=== PATIENT | female | born 1930 | race Caucasian/White ===

== ENCOUNTER 2019-04-13 06:58 | Inpatient (IN) ==
[2019-04-07 12:04] LABS: Basophils % 0.7 % (0.0-0.8); Eosinophils # 0.2 10*3/uL (0.0-0.87); Eosinophils % 2.7 % (0.00-10.9); Hematocrit 30.5 VOL% (35.7-47.0); Hemoglobin 9.6 GM/DL (12.0-16.0); Immature Granulocytes % 0.4 %; Immature Granulocytes Absolute 0.02 #; Lymphocytes # 1.4 10*3/uL (1.4-4.0); Lymphocytes % 23.9 % (21.3-54.2); Mean Corpuscular HGB Conc 31.5 GM/DL (32-36); Mean Corpuscular Volume 98.4 FL (87-102); Mean Platelet Volume 9.2 FL (9.6-12.0); Monocytes % 8.5 % (1.7-12.7); Neutrophils % 63.8 % (38.7-73.9); Platelet Count 233 T/CUMM (130-400); Red Cell Distribution Width 12.6 % (9.3-17.3); White Blood Count 5.7 T/CUMM (4-12)
[2019-04-07 12:46] LABS: Albumin 4.1 G/DL (3.4-5.0); Bilirubin,Total 0.4 MG/DL (0.2-1.0); Calcium 9.8 MG/DL (8.5-10.1); Osmolality,Calculated 284.2 MOS/KG (273-304); Total Protein 7.4 G/DL (6.4-8.3)
[~2019-04-13 06:58] MED LIST: ceFAZolin 1,000 MG VIAL ONE; ceFAZolin 1,000 MG in SYRINGE 1 EACH IV ONE
[2019-04-13] MEDS ORDERED: LIDOCAINE 1% 20 ML VIAL ONE (07:47)
[2019-04-13] MEDS ORDERED: VANCOMYCIN 500 MG VIAL ONE (07:47)
[2019-04-13] MEDS ORDERED: HEPARIN 5,000 UNIT/1 ML VIAL ONE (07:47)
[2019-04-13] MEDS ORDERED: THROMBIN TOPICAL (RECOMBINANT) 5,000 UNIT VIAL TOP ONE (07:47)
[2019-04-13] MEDS: SODIUM CHLORIDE 0.9% 250 ML IV SCH ×3 (08:50→15:13)
[2019-04-13] MEDS ORDERED: TISSUE ADHESIVE 1 EACH APPLICATOR TOP ONE (10:49)
[2019-04-13] MEDS ORDERED: HYDROmorphone 2 MG/1 ML VIAL IV PRN (11:04)
[2019-04-13] MEDS ORDERED: ONDANSETRON 4 MG/2 ML VIAL IV PRN (11:04)
[2019-04-13] MEDS ORDERED: NALOXONE 0.4 MG/ML VIAL ONE ×2 (11:09→11:27)
[2019-04-13] MEDS ORDERED: ACETAMINOPHEN 1,000 MG/100 ML VIAL IV ONE (11:20)
[2019-04-13] MEDS ORDERED: ROCURONIUM 100 MG/10 ML VIAL IV ONE (11:27)
[2019-04-13] MEDS ORDERED: SODIUM CHLORIDE 0.9% 250 ML IV ONE (11:27)
[2019-04-13] MEDS ORDERED: PROPOFOL 200 MG/20 ML VIAL IV ONE (11:27)
[2019-04-13] MEDS ORDERED: fentaNYL 100 MCG/2 ML VIAL ONE (11:27)
[2019-04-13] MEDS ORDERED: SEVOFLURANE 1 UNIT/15 MINUTE INH ONE (11:27)
[2019-04-13] MEDS ORDERED: ETOMIDATE 40 MG/20 ML VIAL IV ONE (11:27)
[2019-04-13] MEDS ORDERED: fentaNYL 50 MCG/HR PATCH TRANSDERM SCH (11:30)
[2019-04-13] MEDS: PANTOPRAZOLE 40 MG TABLET PO SCH (15:11)
[2019-04-13] MEDS: DEXTROSE 5% NACL 0.45% 1,000 ML IV SCH (16:52)
[2019-04-13] MEDS: DOCUSATE SODIUM 100 MG CAPSULE PO SCH (20:55)
[2019-04-13] MEDS: METOPROLOL TARTRATE 50 MG TABLET PO SCH (20:55)
[2019-04-14 04:33] LABS: Hematocrit 29.1 VOL% (35.7-47.0)
[2019-04-14 04:48] LABS: Calcium 8.4 MG/DL (8.5-10.1); Osmolality,Calculated 289.5 MOS/KG (273-304)
[2019-04-14] MEDS: MULTIVITAMIN (BEROCCA) TABLET PO SCH (09:28)
[2019-04-14] MEDS: DOCUSATE SODIUM 100 MG CAPSULE PO SCH ×2 (09:29→20:56)
[2019-04-14] MEDS: GABAPENTIN 400 MG CAPSULE PO SCH (09:29)
[2019-04-14] MEDS: PANTOPRAZOLE 40 MG TABLET PO SCH (09:29)
[2019-04-14] MEDS: FUROSEMIDE 40 MG TABLET PO SCH (09:29)
[2019-04-14] MEDS: METOPROLOL TARTRATE 50 MG TABLET PO SCH ×2 (09:30→20:56)
[2019-04-14] MEDS: MULTIVITAMIN (CENTRUM) TABLET PO SCH (09:33)
[2019-04-14] MEDS: DEXTROSE 5% NACL 0.45% 1,000 ML IV SCH (10:27)
[2019-04-14] MEDS ORDERED: fentaNYL 50 MCG/HR PATCH TRANSDERM SCH (14:00)
[2019-04-15] MEDS: MULTIVITAMIN (CENTRUM) TABLET PO SCH (08:21)
[2019-04-15] MEDS: MULTIVITAMIN (BEROCCA) TABLET PO SCH (08:21)
[2019-04-15] MEDS: FUROSEMIDE 40 MG TABLET PO SCH (08:21)
[2019-04-15] MEDS: METOPROLOL TARTRATE 50 MG TABLET PO SCH (08:21)
[2019-04-15] MEDS: DOCUSATE SODIUM 100 MG CAPSULE PO SCH (08:21)
[2019-04-15] MEDS: GABAPENTIN 400 MG CAPSULE PO SCH (08:22)
[2019-04-15] MEDS: PANTOPRAZOLE 40 MG TABLET PO SCH (08:22)
[2019-04-15 12:22] VITALS: BP 148/51
== END 2019-04-15 14:26 | disposition home or self-care (01) | DRG 254 ==
LOC: N.OR 06:58 → N.SDSINP 07:03 → N.4E 11:04 → EDSTATUS 11:45 → N.4E 12:38
PROVIDERS: ADMIT Surgery; ATTEND Surgery

== ENCOUNTER 2020-07-02 07:14 | Inpatient (IN) ==
[2020-06-25 15:51] LABS: Basophils % 0.3 % (0.0-0.8); Eosinophils % 0.7 % (0.00-10.9); Hematocrit 27.5 VOL% (35.7-47.0); Hemoglobin 8.7 GM/DL (12.0-16.0); Immature Granulocytes % 0.2 %; Immature Granulocytes Absolute 0.01 #; Lymphocytes # 1.4 10*3/uL (1.4-4.0); Lymphocytes % 23.5 % (21.3-54.2); Mean Corpuscular HGB Conc 31.6 GM/DL (32-36); Mean Corpuscular Volume 96.2 FL (87-102); Mean Platelet Volume 9.1 FL (9.6-12.0); Monocytes % 7.5 % (1.7-12.7); Neutrophils % 67.8 % (38.7-73.9); Platelet Count 448 T/CUMM (130-400); Red Blood Count 2.86 MC/CUMM (3.8-5.5); Red Cell Distribution Width 13.8 % (9.3-17.3)
[2020-06-25 16:00] LABS: PT Patient Result 10.7 SECS (9.8-11.9)
[2020-06-25 16:13] LABS: Alanine Aminotransferase 14 U/L (13-56); Alkaline Phosphatase 127 U/L (45-117); Aspartate Amino Transferase 9 U/L (0-37); Bilirubin,Total < 0.39 MG/DL (0.2-1.0); Blood Urea Nitrogen 72 MG/DL (7-18); Calcium 10.1 MG/DL (8.5-10.1); Estimated Glom Filtration Rate 17 ML/MIN; Glucose 98 MG/DL (74-106); Osmolality,Calculated 293.8 MOS/KG (273-304); Total Protein 5.8 G/DL (6.4-8.3)
[~2020-07-02 07:14] MED LIST changes: +HEPARIN 5,000 UNIT/1 ML VIAL ONE; +LACTATED RINGERS 1,000 ML IV SCH; +VANCOMYCIN 500 MG VIAL ONE; +VANCOMYCIN INJ 500 MG in SODIUM CHLORIDE 0.9% 100 ML IV ONE; -ceFAZolin 1,000 MG VIAL ONE; -ceFAZolin 1,000 MG in SYRINGE 1 EACH IV ONE
[2020-07-02] MEDS ORDERED: TISSUE ADHESIVE 1 EACH APPLICATOR TOP ONE (09:50)
[2020-07-02] MEDS ORDERED: ONDANSETRON 4 MG/2 ML VIAL IV PRN (10:36)
[2020-07-02] MEDS ORDERED: FUROSEMIDE 40 MG TABLET PO PRN (10:39)
[2020-07-02] MEDS ORDERED: LIDOCAINE 2% 5 ML VIAL ONE (10:58)
[2020-07-02] MEDS ORDERED: SEVOFLURANE 1 UNIT/15 MINUTE INH ONE (10:58)
[2020-07-02] MEDS ORDERED: propofoL 200 MG/20 ML VIAL IV ONE (10:58)
[2020-07-02] MEDS ORDERED: HEPARIN 10,000 UNIT/10 ML VIAL ONE (10:58)
[2020-07-02] MEDS ORDERED: NALOXONE 0.4 MG/ML VIAL ONE (10:59)
[2020-07-02] MEDS ORDERED: fentaNYL 100 MCG/2 ML VIAL ONE ×2 (10:59)
[2020-07-02] MEDS ORDERED: ETOMIDATE 40 MG/20 ML VIAL IV ONE (11:00)
[2020-07-02] MEDS ORDERED: ACETAMINOPHEN 1,000 MG/100 ML VIAL IV ONE (11:00)
[2020-07-02] MEDS ORDERED: DEXAMETHASONE 4 MG/1 ML VIAL ONE (11:00)
[2020-07-02] MEDS ORDERED: GLYCOPYRROLATE 0.4 MG/2 ML VIAL ONE (11:00)
[2020-07-02] MEDS ORDERED: ROCURONIUM 100 MG/10 ML VIAL IV ONE (11:00)
[2020-07-02] MEDS ORDERED: PHENYLEPHRINE 10 MG/1 ML VIAL IV ONE (11:00)
[2020-07-02] MEDS ORDERED: NEOSTIGMINE 10 MG/10 ML VIAL ONE (11:00)
[2020-07-02 11:33] LABS: Hematocrit 20.1 VOL% (35.7-47.0)
[2020-07-02 11:39] LABS: Hemoglobin 6.4 GM/DL (12.0-16.0)
[2020-07-02] MEDS ORDERED: SODIUM CHLORIDE 0.9% 1,000 ML IV PRN (11:47)
[2020-07-02] MEDS ORDERED: INFLUENZA VIRUS VACCINE 0.5 ML SYRINGE IM ONE (12:50)
[2020-07-02] MEDS: GABAPENTIN 400 MG CAPSULE PO SCH (22:33)
[2020-07-02] MEDS: METHENAMINE HIPPURATE 1 GM TABLET PO SCH (22:33)
[2020-07-02] MEDS: ACETAMINOPHEN 325 MG TABLET PO PRN (22:33)
[2020-07-02] MEDS: LACTATED RINGERS 1,000 ML IV SCH (22:45)
[2020-07-03 06:05] LABS: Calcium 9.3 MG/DL (8.5-10.1); Osmolality,Calculated 296.1 MOS/KG (273-304)
[2020-07-03 06:23] LABS: Basophils # 0.1 10*3/uL (0.0-0.2); Basophils % 0.2 % (0.0-0.8); Hematocrit 32.8 VOL% (35.7-47.0); Immature Granulocytes Absolute 0.28 #; Lymphocytes % 3.2 % (21.3-54.2); Mean Corpuscular Volume 96.8 FL (87-102); Monocytes % 2.4 % (1.7-12.7); Neutrophils % 93.2 % (38.7-73.9); Platelet Count 303 T/CUMM (130-400); Red Blood Count 3.39 MC/CUMM (3.8-5.5); Red Cell Distribution Width 14.2 % (9.3-17.3); White Blood Count 29.3 T/CUMM (4-12)
[2020-07-03 06:26] LABS: Hemoglobin 10.5 GM/DL (12.0-16.0)
[2020-07-03 06:49] LABS: Band Neutrophils 4 % (0-10); Hypochromasia 1+; Lymphocytes 4 % (20-55); Nucleated Red Blood Cells 1 (0-5); Platelet Estimate Normal; Segmented Neutrophils 88 % (50-85); Total Cells Counted 100
[2020-07-03] MEDS: ENOXAPARIN 30 MG/0.3 ML SYRINGE SUBCUT SCH (06:53)
[2020-07-03] MEDS: METOPROLOL SUCCINATE XL 50 MG TABLET PO SCH (09:20)
[2020-07-03] MEDS: METHENAMINE HIPPURATE 1 GM TABLET PO SCH ×2 (09:20→20:17)
[2020-07-03] MEDS: GABAPENTIN 400 MG CAPSULE PO SCH ×2 (09:20→20:17)
[2020-07-03] MEDS: ASPIRIN EC 81 MG TABLET PO SCH (09:20)
[2020-07-03] MEDS: PANTOPRAZOLE 40 MG TABLET PO SCH (09:20)
[2020-07-03] MEDS: CALCIUM (CARBONATE)/VITAMIN D 600 MG-400 UNIT TABLET PO SCH (09:20)
[2020-07-03] MEDS: [UNRECOGNIZED DRUG - OTHER] PO SCH (10:30)
[2020-07-03] MEDS: LACTATED RINGERS 1,000 ML IV SCH (18:34)
[2020-07-03] MEDS: ACETAMINOPHEN 325 MG TABLET PO PRN (20:16)
[2020-07-04 05:41] LABS: Basophils % 0.1 % (0.0-0.8); Eosinophils % 0.1 % (0.00-10.9); Hematocrit 27.2 VOL% (35.7-47.0); Hemoglobin 8.8 GM/DL (12.0-16.0); Immature Granulocytes % 0.6 %; Immature Granulocytes Absolute 0.11 #; Lymphocytes % 5.4 % (21.3-54.2); Mean Corpuscular HGB Conc 32.4 GM/DL (32-36); Mean Corpuscular Volume 96.5 FL (87-102); Mean Platelet Volume 10.2 FL (9.6-12.0); Monocytes % 3.9 % (1.7-12.7); Neutrophils % 89.9 % (38.7-73.9); Platelet Count 214 T/CUMM (130-400); Red Blood Count 2.82 MC/CUMM (3.8-5.5); Red Cell Distribution Width 14.2 % (9.3-17.3); White Blood Count 18.7 T/CUMM (4-12)
[2020-07-04] MEDS: ENOXAPARIN 30 MG/0.3 ML SYRINGE SUBCUT SCH (05:52)
[2020-07-04 06:01] LABS: Calcium 9.1 MG/DL (8.5-10.1); Osmolality,Calculated 288.5 MOS/KG (273-304)
[2020-07-04] MEDS: METOPROLOL SUCCINATE XL 50 MG TABLET PO SCH (10:12)
[2020-07-04] MEDS: METHENAMINE HIPPURATE 1 GM TABLET PO SCH ×2 (10:12→20:12)
[2020-07-04] MEDS: PANTOPRAZOLE 40 MG TABLET PO SCH (10:12)
[2020-07-04] MEDS: CALCIUM (CARBONATE)/VITAMIN D 600 MG-400 UNIT TABLET PO SCH (10:12)
[2020-07-04] MEDS: LACTATED RINGERS 1,000 ML IV SCH (10:13)
[2020-07-04] MEDS: GABAPENTIN 400 MG CAPSULE PO SCH ×2 (10:13→20:12)
[2020-07-04] MEDS: ASPIRIN EC 81 MG TABLET PO SCH (10:13)
[2020-07-04] MEDS: [UNRECOGNIZED DRUG - OTHER] PO SCH (10:13)
[2020-07-04] MEDS: SODIUM BICARB INJ 50 MEQ in SODIUM CHLORIDE 0.45% 1,000 ML IV SCH (11:20)
[2020-07-04] MEDS: HYDROmorphone 2 MG/1 ML VIAL IV PRN (11:20)
[2020-07-04] MEDS: ACETAMINOPHEN 325 MG TABLET PO PRN (20:13)
[2020-07-05] MEDS: ACETAMINOPHEN 325 MG TABLET PO PRN (03:35)
[2020-07-05] MEDS: HYDROmorphone 2 MG/1 ML VIAL IV PRN (04:32)
[2020-07-05] MEDS: ENOXAPARIN 30 MG/0.3 ML SYRINGE SUBCUT SCH (05:25)
[2020-07-05 05:58] LABS: Osmolality,Calculated 298.7 MOS/KG (273-304)
[2020-07-05] MEDS ORDERED: amLODIPine 5 MG TABLET PO SCH (09:00)
[2020-07-05] MEDS ORDERED: fentaNYL 50 MCG/HR PATCH TRANSDERM SCH (09:00)
[2020-07-05] MEDS: METHENAMINE HIPPURATE 1 GM TABLET PO SCH (09:03)
[2020-07-05] MEDS: GABAPENTIN 400 MG CAPSULE PO SCH (09:03)
[2020-07-05] MEDS: ASPIRIN EC 81 MG TABLET PO SCH (09:03)
[2020-07-05] MEDS: [UNRECOGNIZED DRUG - OTHER] PO SCH (09:04)
[2020-07-05] MEDS: METOPROLOL SUCCINATE XL 50 MG TABLET PO SCH (09:04)
[2020-07-05] MEDS: CALCIUM (CARBONATE)/VITAMIN D 600 MG-400 UNIT TABLET PO SCH (09:04)
[2020-07-05] MEDS: PANTOPRAZOLE 40 MG TABLET PO SCH (09:04)
[2020-07-05] MEDS: SODIUM BICARB INJ 50 MEQ in SODIUM CHLORIDE 0.45% 1,000 ML IV SCH (09:06)
[2020-07-05 11:12] VITALS: BP 112/54
== END 2020-07-05 12:40 | disposition home health service (06) | DRG 271 ==
LOC: N.OR 07:14 → N.SDSINP 07:16 → N.3E 11:45
PROVIDERS: ADMIT Surgery; ATTEND Surgery

== ENCOUNTER 2020-07-23 16:48 | Inpatient (IN) ==
[2020-07-24] MEDS: PIPERACILLIN/TAZOBACTAM 2,250 MG in SODIUM CHLORIDE 0.9% 100 ML IV SCH ×3 (00:27→22:06)
[2020-07-24] MEDS: CIPROFLOXACIN 500 MG TABLET PO SCH ×3 (00:27→22:06)
[2020-07-24 09:51] LABS: Basophils % 0.4 % (0.0-0.8); Eosinophils # 0.1 10*3/uL (0.0-0.87); Eosinophils % 1.5 % (0.00-10.9); Hematocrit 29.6 VOL% (35.7-47.0); Hemoglobin 9.8 GM/DL (12.0-16.0); Immature Granulocytes % 2.1 %; Immature Granulocytes Absolute 0.16 #; Lymphocytes # 0.9 10*3/uL (1.4-4.0); Lymphocytes % 11.4 % (21.3-54.2); Mean Corpuscular HGB Conc 33.1 GM/DL (32-36); Mean Corpuscular Volume 92.5 FL (87-102); Monocytes % 7.7 % (1.7-12.7); Neutrophils % 76.9 % (38.7-73.9); Platelet Count 390 T/CUMM (130-400); Red Cell Distribution Width 14.6 % (9.3-17.3); White Blood Count 7.5 T/CUMM (4-12)
[2020-07-24 10:13] LABS: Albumin 1.4 G/DL (3.4-5.0); Bilirubin,Total 1.1 MG/DL (0.2-1.0); Calcium 9.2 MG/DL (8.5-10.1); Osmolality,Calculated 287.1 MOS/KG (273-304); Total Protein 4.7 G/DL (6.4-8.3)
[2020-07-24] MEDS ORDERED: ONDANSETRON 4 MG/2 ML VIAL IV PRN (15:35)
[2020-07-24] MEDS ORDERED: ALBUTEROL/IPRATROPIUM 3 ML NEB RESP TX PRN (15:35)
[2020-07-24] MEDS: METOPROLOL SUCCINATE XL 50 MG TABLET PO SCH (17:18)
[2020-07-24] MEDS: LACTATED RINGERS 1,000 ML IV SCH (17:26)
[2020-07-24] MEDS: diphenhydrAMINE CAP 25 MG CAPSULE PO SCH (22:07)
[2020-07-25] MEDS: LACTATED RINGERS 1,000 ML IV SCH ×2 (08:15→18:40)
[2020-07-25] MEDS: PIPERACILLIN/TAZOBACTAM 2,250 MG in SODIUM CHLORIDE 0.9% 100 ML IV SCH ×2 (10:01→21:51)
[2020-07-25] MEDS: METOPROLOL SUCCINATE XL 50 MG TABLET PO SCH (10:01)
[2020-07-25] MEDS: CIPROFLOXACIN 500 MG TABLET PO SCH ×2 (10:01→21:51)
[2020-07-25] MEDS: PANTOPRAZOLE 40 MG TABLET PO SCH (10:01)
[2020-07-25] MEDS: diphenhydrAMINE CAP 25 MG CAPSULE PO SCH (21:51)
[2020-07-25] MEDS: MENTHOL/ZINC OXIDE OINT 71 GM JAR TOP SCH (21:51)
[2020-07-26] MEDS: LACTATED RINGERS 1,000 ML IV SCH ×3 (04:36→23:22)
[2020-07-26] MEDS ORDERED: BUPIVACAINE MPF 0.25% 30 ML VIAL ONE (07:21)
[2020-07-26] MEDS ORDERED: HEPARIN 5,000 UNIT/1 ML VIAL ONE ×2 (07:21→12:32)
[2020-07-26] MEDS ORDERED: LIDOCAINE 1% 20 ML VIAL ONE (07:21)
[2020-07-26] MEDS ORDERED: VANCOMYCIN 500 MG VIAL ONE (07:21)
[2020-07-26] MEDS ORDERED: LIDOCAINE 1%/EPI INJ 20 ML VIAL ONE (07:21)
[2020-07-26] MEDS ORDERED: ALBUMIN 5% 12.5 GM/250 ML VIAL IV ONE (09:05)
[2020-07-26] MEDS ORDERED: CALCIUM CHLORIDE 1,000 MG/10 ML VIAL IV ONE (09:05)
[2020-07-26] MEDS ORDERED: TISSUE ADHESIVE 1 EACH APPLICATOR TOP ONE (11:22)
[2020-07-26] MEDS ORDERED: HEPARIN 10,000 UNIT/10 ML VIAL ONE (11:53)
[2020-07-26] MEDS ORDERED: ROCURONIUM 100 MG/10 ML VIAL IV ONE (11:53)
[2020-07-26] MEDS ORDERED: HEPARIN/NACL 0.9% 2 UNITS/ML 500 ML IV ONE (11:53)
[2020-07-26] MEDS ORDERED: ONDANSETRON 4 MG/2 ML VIAL ONE (11:53)
[2020-07-26] MEDS ORDERED: PHENYLEPHRINE 10 MG/1 ML VIAL IV ONE (11:53)
[2020-07-26] MEDS ORDERED: LACTATED RINGERS 1,000 ML IV ONE (11:53)
[2020-07-26] MEDS ORDERED: propofoL 200 MG/20 ML VIAL IV ONE (11:53)
[2020-07-26] MEDS ORDERED: PROTAMINE SULFATE 50 MG/5 ML VIAL IV ONE (11:53)
[2020-07-26] MEDS ORDERED: SODIUM CHLORIDE 0.9% 100 ML IV ONE (11:53)
[2020-07-26] MEDS ORDERED: LIDOCAINE 2% 5 ML VIAL ONE (11:53)
[2020-07-26] MEDS ORDERED: fentaNYL 100 MCG/2 ML VIAL ONE (11:53)
[2020-07-26] MEDS ORDERED: DEXAMETHASONE 4 MG/1 ML VIAL ONE (11:53)
[2020-07-26] MEDS ORDERED: SEVOFLURANE 1 UNIT/15 MINUTE INH ONE (11:53)
[2020-07-26] MEDS ORDERED: GLYCOPYRROLATE 0.4 MG/2 ML VIAL ONE (12:33)
[2020-07-26] MEDS ORDERED: NEOSTIGMINE 10 MG/10 ML VIAL ONE (12:33)
[2020-07-26] MEDS ORDERED: ACETAMINOPHEN 325 MG TABLET PO PRN (12:57)
[2020-07-26] MEDS ORDERED: FUROSEMIDE 40 MG TABLET PO PRN (12:57)
[2020-07-26 13:50] LABS: Basophils % 0.2 % (0.0-0.8); Eosinophils # 0.1 10*3/uL (0.0-0.87); Eosinophils % 0.3 % (0.00-10.9); Hematocrit 21.2 VOL% (35.7-47.0); Hemoglobin 6.8 GM/DL (12.0-16.0); Immature Granulocytes % 3.4 %; Immature Granulocytes Absolute 0.75 #; Lymphocytes # 0.9 10*3/uL (1.4-4.0); Mean Corpuscular HGB Conc 32.1 GM/DL (32-36); Mean Corpuscular Volume 95.1 FL (87-102); Monocytes % 1.9 % (1.7-12.7); Neutrophils % 90.2 % (38.7-73.9); Platelet Count 325 T/CUMM (130-400); Red Blood Count 2.23 MC/CUMM (3.8-5.5); Red Cell Distribution Width 14.9 % (9.3-17.3); White Blood Count 22.2 T/CUMM (4-12)
[2020-07-26] MEDS ORDERED: SODIUM CHLORIDE 0.9% 1,000 ML IV PRN (14:02)
[2020-07-26] MEDS: MENTHOL/ZINC OXIDE OINT 71 GM JAR TOP SCH ×2 (14:06→20:33)
[2020-07-26 14:07] LABS: Calcium 8.4 MG/DL (8.5-10.1); Osmolality,Calculated 282.1 MOS/KG (273-304)
[2020-07-26] MEDS: METOPROLOL SUCCINATE XL 50 MG TABLET PO SCH (14:07)
[2020-07-26] MEDS ORDERED: DEXTROSE 50% 25 GM/50 ML VIAL IV PRN (14:15)
[2020-07-26 14:19] LABS: Anisocytosis 1+; Lymphocytes 2 % (20-55); Segmented Neutrophils 94 % (50-85); Total Cells Counted 100
[2020-07-26 14:20] LABS: Macrocytosis Slight; Tear Drop Cells Few
[2020-07-26] MEDS ORDERED: DEXTROSE 50% 25 GM/50 ML VIAL IV ONE (14:20)
[2020-07-26 14:21] LABS: Platelet Estimate Adequate; Polychromasia Few
[2020-07-26] MEDS: PANTOPRAZOLE 40 MG TABLET PO SCH (14:28)
[2020-07-26] MEDS: CIPROFLOXACIN 500 MG TABLET PO SCH ×2 (16:27→20:22)
[2020-07-26] MEDS: PIPERACILLIN/TAZOBACTAM 2,250 MG in SODIUM CHLORIDE 0.9% 100 ML IV SCH (16:27)
[2020-07-26] MEDS ORDERED: MAGNESIUM SULF RIDER 4 GM in PREMIX 1 EACH IV PRN (17:53)
[2020-07-26] MEDS ORDERED: POTASSIUM CHLORIDE RIDER 20 MEQ in PREMIX 1 EACH IV PRN (17:53)
[2020-07-26] MEDS ORDERED: MAGNESIUM SULF RIDER 2 GM in PREMIX 1 EACH IV PRN (17:53)
[2020-07-26] MEDS ORDERED: MAGNESIUM SULF RIDER 50 ML IV ONE (17:57)
[2020-07-26] MEDS: diphenhydrAMINE CAP 25 MG CAPSULE PO SCH (20:21)
[2020-07-26] MEDS: GABAPENTIN 400 MG CAPSULE PO SCH (20:28)
[2020-07-26] MEDS: METHENAMINE HIPPURATE 1 GM TABLET PO SCH (20:29)
[2020-07-27 04:58] LABS: Basophils % 0.2 % (0.0-0.8); Hematocrit 33.2 VOL% (35.7-47.0); Immature Granulocytes % 1.6 %; Immature Granulocytes Absolute 0.24 #; Lymphocytes # 0.6 10*3/uL (1.4-4.0); Lymphocytes % 3.9 % (21.3-54.2); Mean Corpuscular HGB Conc 33.1 GM/DL (32-36); Mean Platelet Volume 9.6 FL (9.6-12.0); Monocytes % 2.6 % (1.7-12.7); Neutrophils % 91.7 % (38.7-73.9); Platelet Count 293 T/CUMM (130-400); Red Blood Count 3.61 MC/CUMM (3.8-5.5); Red Cell Distribution Width 14.3 % (9.3-17.3); White Blood Count 15.1 T/CUMM (4-12)
[2020-07-27 05:07] LABS: Calcium 8.3 MG/DL (8.5-10.1)
[2020-07-27] MEDS: PIPERACILLIN/TAZOBACTAM 2,250 MG in SODIUM CHLORIDE 0.9% 100 ML IV SCH ×2 (05:41→18:00)
[2020-07-27 08:32] LABS: Band Neutrophils 1 % (0-10); Lymphocytes 3 % (20-55); Nucleated Red Blood Cells 1 (0-5); Platelet Estimate Normal; Segmented Neutrophils 93 % (50-85); Total Cells Counted 100
[2020-07-27] MEDS: CIPROFLOXACIN 500 MG TABLET PO SCH ×2 (09:39→21:38)
[2020-07-27] MEDS: ASPIRIN EC 81 MG TABLET PO SCH (09:39)
[2020-07-27] MEDS: [UNRECOGNIZED DRUG - OTHER] PO SCH (09:39)
[2020-07-27] MEDS: METHENAMINE HIPPURATE 1 GM TABLET PO SCH ×2 (09:40→21:38)
[2020-07-27] MEDS: FUROSEMIDE 40 MG TABLET PO SCH (09:40)
[2020-07-27] MEDS: RABEPRAZOLE 20 MG PO SCH (09:40)
[2020-07-27] MEDS: CLOPIDOGREL 75 MG TABLET PO SCH (09:40)
[2020-07-27] MEDS: SODIUM HYPOCHLORITE 0.25% IRRIG 473 ML BOTTLE TOP SCH (09:40)
[2020-07-27] MEDS: PANTOPRAZOLE 40 MG TABLET PO SCH (09:40)
[2020-07-27] MEDS: METOPROLOL SUCCINATE XL 50 MG TABLET PO SCH (09:40)
[2020-07-27] MEDS: GABAPENTIN 400 MG CAPSULE PO SCH ×2 (09:40→21:38)
[2020-07-27] MEDS: ACETAMINOPHEN 325 MG TABLET PO PRN (16:13)
[2020-07-27] MEDS: diphenhydrAMINE CAP 25 MG CAPSULE PO SCH (21:38)
[2020-07-28] MEDS: PIPERACILLIN/TAZOBACTAM 2,250 MG in SODIUM CHLORIDE 0.9% 100 ML IV SCH ×2 (05:31→18:30)
[2020-07-28] MEDS: SODIUM HYPOCHLORITE 0.25% IRRIG 473 ML BOTTLE TOP SCH ×2 (06:30→09:54)
[2020-07-28] MEDS: METOPROLOL SUCCINATE XL 50 MG TABLET PO SCH (09:48)
[2020-07-28] MEDS: ACETAMINOPHEN 325 MG TABLET PO PRN (09:48)
[2020-07-28] MEDS: FUROSEMIDE 40 MG TABLET PO SCH (09:49)
[2020-07-28] MEDS: METHENAMINE HIPPURATE 1 GM TABLET PO SCH ×2 (09:49→21:41)
[2020-07-28] MEDS: GABAPENTIN 400 MG CAPSULE PO SCH ×2 (09:49→21:41)
[2020-07-28] MEDS: CIPROFLOXACIN 500 MG TABLET PO SCH ×2 (09:49→21:41)
[2020-07-28] MEDS: PANTOPRAZOLE 40 MG TABLET PO SCH (09:49)
[2020-07-28] MEDS: ASPIRIN EC 81 MG TABLET PO SCH (09:50)
[2020-07-28] MEDS: CLOPIDOGREL 75 MG TABLET PO SCH (09:50)
[2020-07-28] MEDS: RABEPRAZOLE 20 MG PO SCH (09:51)
[2020-07-28] MEDS: [UNRECOGNIZED DRUG - OTHER] PO SCH (09:53)
[2020-07-28] MEDS: diphenhydrAMINE CAP 25 MG CAPSULE PO SCH (21:42)
[2020-07-29] MEDS: PIPERACILLIN/TAZOBACTAM 2,250 MG in SODIUM CHLORIDE 0.9% 100 ML IV SCH ×2 (05:49→18:22)
[2020-07-29] MEDS: [UNRECOGNIZED DRUG - OTHER] PO SCH (08:02)
[2020-07-29] MEDS: RABEPRAZOLE 20 MG PO SCH (08:03)
[2020-07-29] MEDS: FUROSEMIDE 40 MG TABLET PO SCH (10:38)
[2020-07-29] MEDS: METHENAMINE HIPPURATE 1 GM TABLET PO SCH ×2 (10:38→22:09)
[2020-07-29] MEDS: GABAPENTIN 400 MG CAPSULE PO SCH ×2 (10:38→22:08)
[2020-07-29] MEDS: ASPIRIN EC 81 MG TABLET PO SCH (10:38)
[2020-07-29] MEDS: METOPROLOL SUCCINATE XL 50 MG TABLET PO SCH (10:39)
[2020-07-29] MEDS: CLOPIDOGREL 75 MG TABLET PO SCH (10:39)
[2020-07-29] MEDS: SODIUM HYPOCHLORITE 0.25% IRRIG 473 ML BOTTLE TOP SCH (10:39)
[2020-07-29] MEDS: PANTOPRAZOLE 40 MG TABLET PO SCH (10:39)
[2020-07-29] MEDS: CIPROFLOXACIN 500 MG TABLET PO SCH ×2 (10:39→22:09)
[2020-07-29] MEDS: diphenhydrAMINE CAP 25 MG CAPSULE PO SCH (22:08)
[2020-07-30] MEDS: PIPERACILLIN/TAZOBACTAM 2,250 MG in SODIUM CHLORIDE 0.9% 100 ML IV SCH ×2 (06:02→18:36)
[2020-07-30 06:10] LABS: Basophils # 0.1 10*3/uL (0.0-0.2); Basophils % 0.4 % (0.0-0.8); Eosinophils # 0.3 10*3/uL (0.0-0.87); Hematocrit 27.4 VOL% (35.7-47.0); Immature Granulocytes % 0.9 %; Lymphocytes # 1.3 10*3/uL (1.4-4.0); Lymphocytes % 11.5 % (21.3-54.2); Mean Corpuscular HGB Conc 32.8 GM/DL (32-36); Mean Corpuscular Volume 91.9 FL (87-102); Mean Platelet Volume 9.9 FL (9.6-12.0); Neutrophils % 79.2 % (38.7-73.9); Platelet Count 344 T/CUMM (130-400); Red Blood Count 2.98 MC/CUMM (3.8-5.5); Red Cell Distribution Width 14.7 % (9.3-17.3); White Blood Count 11.5 T/CUMM (4-12)
[2020-07-30 06:33] LABS: Calcium 8.5 MG/DL (8.5-10.1)
[2020-07-30] MEDS: [UNRECOGNIZED DRUG - OTHER] PO SCH (08:10)
[2020-07-30] MEDS: RABEPRAZOLE 20 MG PO SCH (08:10)
[2020-07-30] MEDS: GABAPENTIN 400 MG CAPSULE PO SCH ×2 (10:28→21:32)
[2020-07-30] MEDS: ASPIRIN EC 81 MG TABLET PO SCH (10:28)
[2020-07-30] MEDS: CIPROFLOXACIN 500 MG TABLET PO SCH ×2 (10:28→21:32)
[2020-07-30] MEDS: PANTOPRAZOLE 40 MG TABLET PO SCH (10:30)
[2020-07-30] MEDS: METHENAMINE HIPPURATE 1 GM TABLET PO SCH ×2 (10:30→21:32)
[2020-07-30] MEDS: FUROSEMIDE 40 MG TABLET PO SCH (10:30)
[2020-07-30] MEDS: METOPROLOL SUCCINATE XL 50 MG TABLET PO SCH (10:30)
[2020-07-30] MEDS: CLOPIDOGREL 75 MG TABLET PO SCH (10:30)
[2020-07-30] MEDS: SODIUM HYPOCHLORITE 0.25% IRRIG 473 ML BOTTLE TOP SCH (10:31)
[2020-07-30] MEDS: diphenhydrAMINE CAP 25 MG CAPSULE PO SCH (21:32)
[2020-07-31] MEDS: PIPERACILLIN/TAZOBACTAM 2,250 MG in SODIUM CHLORIDE 0.9% 100 ML IV SCH (05:30)
[2020-07-31] MEDS: FUROSEMIDE 40 MG TABLET PO SCH (09:46)
[2020-07-31] MEDS: GABAPENTIN 400 MG CAPSULE PO SCH ×2 (09:46→20:58)
[2020-07-31] MEDS: ASPIRIN EC 81 MG TABLET PO SCH (09:46)
[2020-07-31] MEDS: CLOPIDOGREL 75 MG TABLET PO SCH (09:46)
[2020-07-31] MEDS: SODIUM HYPOCHLORITE 0.25% IRRIG 473 ML BOTTLE TOP SCH (09:46)
[2020-07-31] MEDS: METHENAMINE HIPPURATE 1 GM TABLET PO SCH ×2 (09:46→20:59)
[2020-07-31] MEDS: [UNRECOGNIZED DRUG - OTHER] PO SCH (09:46)
[2020-07-31] MEDS: RABEPRAZOLE 20 MG PO SCH (09:47)
[2020-07-31] MEDS: PANTOPRAZOLE 40 MG TABLET PO SCH (09:47)
[2020-07-31] MEDS: METOPROLOL SUCCINATE XL 50 MG TABLET PO SCH (09:48)
[2020-07-31] MEDS: PIPERACILLIN/TAZOBACTAM 3,375 MG in SODIUM CHLORIDE 0.9% 100 ML IV SCH (17:46)
[2020-07-31] MEDS: diphenhydrAMINE CAP 25 MG CAPSULE PO SCH (20:58)
[2020-08-01 01:41] LABS: Basophils # 0.1 10*3/uL (0.0-0.2); Basophils % 0.4 % (0.0-0.8); Eosinophils # 0.3 10*3/uL (0.0-0.87); Eosinophils % 2.1 % (0.00-10.9); Hematocrit 25.9 VOL% (35.7-47.0); Hemoglobin 8.5 GM/DL (12.0-16.0); Immature Granulocytes % 0.6 %; Immature Granulocytes Absolute 0.09 #; Lymphocytes # 1.3 10*3/uL (1.4-4.0); Lymphocytes % 9.1 % (21.3-54.2); Mean Corpuscular HGB Conc 32.8 GM/DL (32-36); Mean Corpuscular Volume 92.8 FL (87-102); Mean Platelet Volume 9.7 FL (9.6-12.0); Monocytes % 5.3 % (1.7-12.7); Neutrophils % 82.5 % (38.7-73.9); Platelet Count 380 T/CUMM (130-400); Red Blood Count 2.79 MC/CUMM (3.8-5.5); Red Cell Distribution Width 14.7 % (9.3-17.3); White Blood Count 13.9 T/CUMM (4-12)
[2020-08-01 01:46] LABS: Alanine Aminotransferase 13 U/L (13-56); Albumin 1.4 G/DL (3.4-5.0); Alkaline Phosphatase 107 U/L (45-117); Aspartate Amino Transferase 18 U/L (0-37); Bilirubin,Total < 0.39 MG/DL (0.2-1.0); Blood Urea Nitrogen 28 MG/DL (7-18); Calcium 8.7 MG/DL (8.5-10.1); Estimated Glom Filtration Rate 19 ML/MIN; Glucose 120 MG/DL (74-106); Osmolality,Calculated 289.1 MOS/KG (273-304); Total Protein 4.4 G/DL (6.4-8.3)
[2020-08-01] MEDS: PIPERACILLIN/TAZOBACTAM 3,375 MG in SODIUM CHLORIDE 0.9% 100 ML IV SCH (02:06)
[2020-08-01] MEDS: POTASSIUM CHLORIDE RIDER 10 MEQ in PREMIX 1 EACH IV PRN ×3 (02:14→10:37)
[2020-08-01 03:22] VITALS: BP 125/50
[2020-08-01] MEDS: ASPIRIN EC 81 MG TABLET PO SCH (08:27)
[2020-08-01] MEDS: CLOPIDOGREL 75 MG TABLET PO SCH (08:27)
[2020-08-01] MEDS: METOPROLOL SUCCINATE XL 50 MG TABLET PO SCH (08:27)
[2020-08-01] MEDS: PANTOPRAZOLE 40 MG TABLET PO SCH (08:27)
[2020-08-01] MEDS: FUROSEMIDE 40 MG TABLET PO SCH (08:27)
[2020-08-01] MEDS: RABEPRAZOLE 20 MG PO SCH (08:28)
[2020-08-01] MEDS: SODIUM HYPOCHLORITE 0.25% IRRIG 473 ML BOTTLE TOP SCH (08:28)
[2020-08-01] MEDS: [UNRECOGNIZED DRUG - OTHER] PO SCH (08:28)
[2020-08-01] MEDS ORDERED: SODIUM CHLORIDE 0.9% 1,000 ML IV PRN (08:29)
[2020-08-01] MEDS: GABAPENTIN 400 MG CAPSULE PO SCH (08:38)
[2020-08-01] MEDS: METHENAMINE HIPPURATE 1 GM TABLET PO SCH (08:38)
[2020-08-01] MEDS ORDERED: PIPERACILLIN/TAZOBACTAM 3,375 MG in SODIUM CHLORIDE 0.9% 100 ML IV SCH (18:00)
== END 2020-08-01 14:00 | DRG 252 ==
LOC: N.3E 20:11 → N.ICU 07-26 13:16 → N.3E 07-27 10:58 → N.ICU 08-01 00:21
PROVIDERS: ADMIT Surgery; ATTEND Surgery

== ENCOUNTER 2020-08-28 04:35 | Inpatient (IN) ==
[2020-08-28] MEDS ORDERED: ONDANSETRON ODT 4 MG TABLET PO STA (04:57)
[2020-08-28] MEDS ORDERED: DEXTROSE 50% 25 GM/50 ML VIAL IV PRN (05:52)
[2020-08-28] MEDS ORDERED: ONDANSETRON 4 MG/2 ML VIAL IV PRN (05:52)
[2020-08-28] MEDS ORDERED: GLUCAGON 1 MG VIAL IM PRN (05:52)
[2020-08-28] MEDS: MORPHINE 4 MG/1 ML VIAL IV PRN ×2 (06:35→16:24)
[2020-08-28 06:49] LABS: Basophils % 0.2 % (0.0-0.8); Eosinophils % 0.1 % (0.00-10.9); Hematocrit 28.3 VOL% (35.7-47.0); Hemoglobin 9.3 GM/DL (12.0-16.0); Immature Granulocytes % 1.4 %; Lymphocytes # 0.7 10*3/uL (1.4-4.0); Lymphocytes % 4.8 % (21.3-54.2); Mean Corpuscular HGB Conc 32.9 GM/DL (32-36); Mean Corpuscular Volume 93.1 FL (87-102); Mean Platelet Volume 9.6 FL (9.6-12.0); Monocytes % 5.1 % (1.7-12.7); Neutrophils % 88.4 % (38.7-73.9); Platelet Count 400 T/CUMM (130-400); Red Blood Count 3.04 MC/CUMM (3.8-5.5); Red Cell Distribution Width 14.6 % (9.3-17.3); White Blood Count 14.4 T/CUMM (4-12)
[2020-08-28 07:06] LABS: INR 1.1; PT Patient Result 11.3 SECS (9.8-11.9)
[2020-08-28 07:12] LABS: Band Neutrophils 1 % (0-10); Hypochromasia 1+; Lymphocytes 3 % (20-55); Microcytosis 1+; Ovalocytes Slight; Platelet Estimate Adequate; Segmented Neutrophils 93 % (50-85); Total Cells Counted 100
[2020-08-28 07:19] LABS: Albumin 1.8 G/DL (3.4-5.0); Bilirubin,Total 0.5 MG/DL (0.2-1.0); Calcium 9.7 MG/DL (8.5-10.1); Osmolality,Calculated 292.3 MOS/KG (273-304); Total Protein 5.7 G/DL (6.4-8.3)
[2020-08-28] MEDS ORDERED: fentaNYL 100 MCG/2 ML VIAL ONE ×2 (10:31→10:47)
[2020-08-28] MEDS ORDERED: LIDOCAINE 2% 5 ML VIAL ONE (10:47)
[2020-08-28] MEDS ORDERED: PHENYLEPHRINE 1 MG/10 ML SYRINGE IV ONE (10:47)
[2020-08-28] MEDS ORDERED: propofoL 200 MG/20 ML VIAL IV ONE (10:47)
[2020-08-28] MEDS ORDERED: MIDAZOLAM 2 MG/2 ML VIAL ONE (10:47)
[2020-08-28] MEDS ORDERED: ePHEDrine 50 MG/ML VIAL ONE (10:48)
[2020-08-28 18:03] LABS: Hepatitis B Core IgM Quant 0.19 Index; Hepatitis B Surface Ag Quant 0.27 Index; Hepatitis B Surface Ag Result Negative (Negative); Hepatitis C Virus Ab Quant 0.07 Index; Hepatitis C Virus Ab Result Negative (Negative)
[2020-08-29 15:58] VITALS: BP 122/60
== END 2020-08-29 18:42 | disposition home health service (06) | DRG 534 ==
LOC: N.EDINP 04:35 → N.ED 04:35 → N.3E 08:16 → N.2E 13:09 → SUATTDRO 13:10 → N.3E 17:25
PROVIDERS: ADMIT Internal Medicine; ATTEND Emergency Medicine

== ENCOUNTER 2020-09-09 13:03 | Inpatient (IN) ==
[2020-09-09 14:35] LABS: Basophils % 0.5 % (0.0-0.8); Eosinophils # 0.1 10*3/uL (0.0-0.87); Eosinophils % 1.7 % (0.00-10.9); Hematocrit 22.1 VOL% (35.7-47.0); Hemoglobin 6.7 GM/DL (12.0-16.0); Immature Granulocytes % 0.4 %; Immature Granulocytes Absolute 0.03 #; Lymphocytes # 1.2 10*3/uL (1.4-4.0); Lymphocytes % 13.9 % (21.3-54.2); Mean Corpuscular HGB Conc 30.3 GM/DL (32-36); Mean Corpuscular Volume 96.9 FL (87-102); Mean Platelet Volume 9.1 FL (9.6-12.0); Monocytes % 4.9 % (1.7-12.7); Neutrophils % 78.6 % (38.7-73.9); Platelet Count 741 T/CUMM (130-400); Red Blood Count 2.28 MC/CUMM (3.8-5.5); Red Cell Distribution Width 14.8 % (9.3-17.3); White Blood Count 8.4 T/CUMM (4-12)
[2020-09-09 14:58] LABS: Alanine Aminotransferase 10 U/L (13-56); Albumin 1.4 G/DL (3.4-5.0); Alkaline Phosphatase 171 U/L (45-117); Aspartate Amino Transferase 11 U/L (0-37); Bilirubin,Total < 0.39 MG/DL (0.2-1.0); Blood Urea Nitrogen 31 MG/DL (7-18); Calcium 9.2 MG/DL (8.5-10.1); Carbon Dioxide 26 MMOL/L (21-32); Estimated Glom Filtration Rate 25 ML/MIN; Glucose 79 MG/DL (74-106); Potassium 3.9 MMOL/L (3.5-5.1); Sodium 143 MMOL/L (136-145)
[2020-09-09] MEDS ORDERED: ACETAMINOPHEN 325 MG TABLET PO PRN (16:02)
[2020-09-09] MEDS ORDERED: GLUCAGON 1 MG VIAL IM PRN (16:02)
[2020-09-09] MEDS ORDERED: ONDANSETRON 4 MG/2 ML VIAL IV PRN (16:02)
[2020-09-09] MEDS ORDERED: DEXTROSE 50% 25 GM/50 ML VIAL IV PRN (16:02)
[2020-09-09] MEDS ORDERED: SODIUM CHLORIDE 0.9% 1,000 ML IV PRN (16:05)
[2020-09-09 16:45] LABS: VLDL CHOLESTEROL 20.8 MG/DL
[2020-09-09] MEDS: PANTOPRAZOLE 40 MG VIAL IV SCH (21:34)
[2020-09-10 08:44] LABS: Basophils % 0.5 % (0.0-0.8); Eosinophils # 0.1 10*3/uL (0.0-0.87); Eosinophils % 1.7 % (0.00-10.9); Hematocrit 22.1 VOL% (35.7-47.0); Hemoglobin 6.7 GM/DL (12.0-16.0); Immature Granulocytes % 0.4 %; Immature Granulocytes Absolute 0.03 #; Lymphocytes # 1.2 10*3/uL (1.4-4.0); Lymphocytes % 13.9 % (21.3-54.2); Mean Corpuscular HGB Conc 30.3 GM/DL (32-36); Mean Corpuscular Volume 96.9 FL (87-102); Mean Platelet Volume 9.1 FL (9.6-12.0); Monocytes % 4.9 % (1.7-12.7); Neutrophils % 78.6 % (38.7-73.9); Platelet Count 741 T/CUMM (130-400); Red Blood Count 2.28 MC/CUMM (3.8-5.5); Red Cell Distribution Width 14.8 % (9.3-17.3); White Blood Count 8.4 T/CUMM (4-12)
[2020-09-10] MEDS: LACTATED RINGERS 1,000 ML IV SCH ×3 (08:56→21:09)
[2020-09-10] MEDS ORDERED: PANTOPRAZOLE 40 MG TABLET PO SCH (09:00)
[2020-09-10] MEDS: PANTOPRAZOLE 40 MG VIAL IV SCH ×2 (09:45→21:01)
[2020-09-10 10:04] LABS: Basophils % 0.3 % (0.0-0.8); Eosinophils # 0.1 10*3/uL (0.0-0.87); Eosinophils % 1.3 % (0.00-10.9); Hematocrit 35.1 VOL% (35.7-47.0); Hemoglobin 11.2 GM/DL (12.0-16.0); Immature Granulocytes % 0.5 %; Immature Granulocytes Absolute 0.05 #; Lymphocytes % 10.4 % (21.3-54.2); Mean Corpuscular HGB Conc 31.9 GM/DL (32-36); Mean Corpuscular Volume 94.1 FL (87-102); Mean Platelet Volume 8.7 FL (9.6-12.0); Monocytes % 4.2 % (1.7-12.7); Neutrophils % 83.3 % (38.7-73.9); Platelet Count 652 T/CUMM (130-400); Red Blood Count 3.73 MC/CUMM (3.8-5.5); Red Cell Distribution Width 14.6 % (9.3-17.3); White Blood Count 9.8 T/CUMM (4-12)
[2020-09-10 10:32] LABS: Calcium 9.1 MG/DL (8.5-10.1); Potassium 3.9 MMOL/L (3.5-5.1)
[2020-09-10 10:52] LABS: Folate 10.1 NG/ML (5.4-24.0); Vitamin B12 837 PG/ML (211-911)
[2020-09-10 11:43] LABS: Hemoglobin A1 (Alkaline) 97.4 % (96.5-98.5); Hemoglobin A2 (Alkaline) 2.6 % (1.5-3.5)
[2020-09-10 12:03] LABS: Sedimentation Rate-Westergren 61 MM/HR (0-30)
[2020-09-10] MEDS: SODIUM HYPOCHLORITE 0.25% IRRIG 473 ML BOTTLE TOP SCH (15:37)
[2020-09-10] MEDS ORDERED: fentaNYL 25 MCG/HR PATCH TRANSDERM SCH (17:30)
[2020-09-11 05:33] LABS: Basophils % 0.3 % (0.0-0.8); Eosinophils # 0.1 10*3/uL (0.0-0.87); Eosinophils % 1.7 % (0.00-10.9); Hematocrit 31.3 VOL% (35.7-47.0); Immature Granulocytes % 0.6 %; Immature Granulocytes Absolute 0.04 #; Lymphocytes # 0.9 10*3/uL (1.4-4.0); Lymphocytes % 12.4 % (21.3-54.2); Mean Corpuscular HGB Conc 31.9 GM/DL (32-36); Mean Corpuscular Volume 92.3 FL (87-102); Mean Platelet Volume 8.9 FL (9.6-12.0); Platelet Count 567 T/CUMM (130-400); Red Blood Count 3.39 MC/CUMM (3.8-5.5); Red Cell Distribution Width 14.4 % (9.3-17.3); White Blood Count 7.3 T/CUMM (4-12)
[2020-09-11 06:07] LABS: Potassium 4.1 MMOL/L (3.5-5.1)
[2020-09-11] MEDS: PANTOPRAZOLE 40 MG VIAL IV SCH ×2 (09:54→21:44)
[2020-09-11] MEDS: SODIUM HYPOCHLORITE 0.25% IRRIG 473 ML BOTTLE TOP SCH (09:55)
[2020-09-12] MEDS: PANTOPRAZOLE 40 MG VIAL IV SCH (09:03)
[2020-09-12 11:44] VITALS: BP 180/76
[2020-09-12] MEDS: SODIUM HYPOCHLORITE 0.25% IRRIG 473 ML BOTTLE TOP SCH (12:19)
== END 2020-09-12 14:52 | disposition swing bed (61) | DRG 813 ==
LOC: EDUNIT# → EDBD → N.ED 13:03 → N.EDINP 15:34 → SUATTDRO 15:34 → N.3E 16:38
PROVIDERS: ADMIT Internal Medicine; ATTEND Internal Medicine

== ENCOUNTER 2020-10-03 08:01 | Inpatient (IN) ==
[2020-10-03] MEDS ORDERED: SODIUM CHLORIDE 0.9% 1,000 ML IV STA ×2 (08:33→10:36)
[2020-10-03 08:59] LABS: Basophils # 0.1 10*3/uL (0.0-0.2); Basophils % 0.2 % (0.0-0.8); Hematocrit 32.6 VOL% (35.7-47.0); Hemoglobin 10.4 GM/DL (12.0-16.0); Immature Granulocytes % 0.8 %; Immature Granulocytes Absolute 0.26 #; Lymphocytes # 0.7 10*3/uL (1.4-4.0); Lymphocytes % 2.2 % (21.3-54.2); Mean Corpuscular HGB Conc 31.9 GM/DL (32-36); Mean Corpuscular Volume 94.8 FL (87-102); Mean Platelet Volume 8.9 FL (9.6-12.0); Monocytes % 2.5 % (1.7-12.7); Neutrophils % 94.3 % (38.7-73.9); Platelet Count 627 T/CUMM (130-400); Red Blood Count 3.44 MC/CUMM (3.8-5.5); Red Cell Distribution Width 16.3 % (9.3-17.3); White Blood Count 30.6 T/CUMM (4-12)
[2020-10-03 09:19] LABS: Albumin 1.8 G/DL (3.4-5.0); Bilirubin,Total 0.5 MG/DL (0.2-1.0); Calcium 9.7 MG/DL (8.5-10.1); Total Protein 5.6 G/DL (6.4-8.3)
[2020-10-03 09:25] LABS: Band Neutrophils 1 % (0-10); Hypochromasia 1+; Lymphocytes 3 % (20-55); Microcytosis 1+; Platelet Estimate Increased; Segmented Neutrophils 92 % (50-85); Total Cells Counted 100
[2020-10-03 09:30] LABS: INR 1.1; PT Patient Result 11.3 SECS (9.8-11.9); Partial Thromboplastin Time 22.7 SECS (23.9-33.8)
[2020-10-03] MEDS ORDERED: PIPERACILLIN/TAZOBACTAM 3,375 MG in SODIUM CHLORIDE 0.9% 100 ML IV STA (10:36)
[2020-10-03] MEDS ORDERED: PIPERACILLIN/TAZOBACTAM 3,375 MG VIAL IV ONE (10:50)
[2020-10-03 10:58] LABS: Bacteria,Urine Few /HPF (Few); Barbiturates Screen,Urine Negative (Negative); Benzodiazepines Screen,Urine Negative (Negative); Bilirubin,Urine Negative (Negative); Blood, Urine Negative (Negative); Cannabinoid Screen,Urine Negative (Negative); Glucose,Urine (UA) Negative (Negative); Ketones,Urine Negative (Negative); Nitrite,Urine Negative (Negative); Opiate Screen,Urine Negative (Negative); Phencyclidine Screen,Urine Negative (Negative); Protein,Urine Negative; RBC,Urine 3 /HPF (0-4); Renal Epithelial Cells,Urine Few /HPF (<1); Squamous Epithelial Cell,Urine Occasional /HPF (0-10); Urine Appearance CLOUDY (Clear); Urine Color Yellow (Yellow); Urine Urobilinogen < 2.0 EU/DL (0.2-1.0); WBC,Urine 101 /HPF (0-6)
[2020-10-03] MEDS ORDERED: DOCUSATE SODIUM 100 MG CAPSULE PO PRN (11:49)
[2020-10-03] MEDS ORDERED: GLUCAGON 1 MG VIAL IM PRN (11:49)
[2020-10-03] MEDS ORDERED: DEXTROSE 50% 25 GM/50 ML VIAL IV PRN (11:49)
[2020-10-03] MEDS ORDERED: ONDANSETRON 4 MG/2 ML VIAL IV PRN (11:49)
[2020-10-03] MEDS ORDERED: ENOXAPARIN 30 MG/0.3 ML SYRINGE SUBCUT SCH (12:00)
[2020-10-03] MEDS: ALBUTEROL/IPRATROPIUM 3 ML NEB RESP TX SCH ×2 (12:27→20:42)
[2020-10-03] MEDS: SODIUM CHLORIDE 0.9% 1,000 ML IV SCH (14:00)
[2020-10-03] MEDS: GABAPENTIN 400 MG CAPSULE PO SCH ×2 (16:41→23:58)
[2020-10-03 17:32] LABS: Basophils % 0.2 % (0.0-0.8); Hematocrit 30.5 VOL% (35.7-47.0); Hemoglobin 9.8 GM/DL (12.0-16.0); Immature Granulocytes % 0.8 %; Lymphocytes % 4.1 % (21.3-54.2); Mean Corpuscular HGB Conc 32.1 GM/DL (32-36); Mean Corpuscular Volume 94.1 FL (87-102); Mean Platelet Volume 9.8 FL (9.6-12.0); Monocytes % 3.1 % (1.7-12.7); Neutrophils % 91.8 % (38.7-73.9); Platelet Count 475 T/CUMM (130-400); Red Blood Count 3.24 MC/CUMM (3.8-5.5); Red Cell Distribution Width 16.5 % (9.3-17.3); White Blood Count 25.1 T/CUMM (4-12)
[2020-10-03 18:20] LABS: Band Neutrophils 9 % (0-10); Lymphocytes 3 % (20-55); Platelet Estimate Increased; Segmented Neutrophils 85 % (50-85); Total Cells Counted 100; Toxic Granulation 1+
[2020-10-03] MEDS: PIPERACILLIN/TAZOBACTAM 3,375 MG in SODIUM CHLORIDE 0.9% 100 ML IV SCH (22:46)
[2020-10-04] MEDS: ALBUTEROL/IPRATROPIUM 3 ML NEB RESP TX SCH ×4 (00:44→20:32)
[2020-10-04 05:55] LABS: Basophils % 0.2 % (0.0-0.8); Eosinophils % 0.1 % (0.00-10.9); Hematocrit 23.7 VOL% (35.7-47.0); Hemoglobin 7.5 GM/DL (12.0-16.0); Immature Granulocytes % 0.7 %; Immature Granulocytes Absolute 0.11 #; Lymphocytes # 0.7 10*3/uL (1.4-4.0); Lymphocytes % 4.2 % (21.3-54.2); Mean Corpuscular HGB Conc 31.6 GM/DL (32-36); Mean Corpuscular Volume 96.7 FL (87-102); Mean Platelet Volume 9.5 FL (9.6-12.0); Monocytes % 2.9 % (1.7-12.7); Neutrophils % 91.9 % (38.7-73.9); Platelet Count 479 T/CUMM (130-400); Red Blood Count 2.45 MC/CUMM (3.8-5.5); Red Cell Distribution Width 16.8 % (9.3-17.3); White Blood Count 16.8 T/CUMM (4-12)
[2020-10-04 06:27] LABS: Calcium 9.5 MG/DL (8.5-10.1); Osmolality,Calculated 295.1 MOS/KG (273-304)
[2020-10-04 06:45] LABS: Hypochromasia 1+; Lymphocytes 2 % (20-55); Microcytosis 1+; Segmented Neutrophils 96 % (50-85); Total Cells Counted 100
[2020-10-04 06:46] LABS: Acanthocytes Few; Ovalocytes Slight; Platelet Estimate Increased
[2020-10-04] MEDS: GABAPENTIN 400 MG CAPSULE PO SCH (09:28)
[2020-10-04] MEDS: DESITIN 4OZ/NYSTATIN 15 GRAM MIXTURE PASTE TOP SCH ×2 (10:51→21:14)
[2020-10-04] MEDS: PANTOPRAZOLE 40 MG TABLET PO SCH (10:51)
[2020-10-04] MEDS: SODIUM CHLORIDE 0.9% 1,000 ML IV SCH ×2 (10:51→17:57)
[2020-10-04] MEDS: GABAPENTIN 300 MG CAPSULE PO SCH ×2 (10:51→21:14)
[2020-10-04] MEDS: PIPERACILLIN/TAZOBACTAM 3,375 MG in SODIUM CHLORIDE 0.9% 100 ML IV SCH ×2 (10:52→21:14)
[2020-10-04] MEDS: ZALEPLON 5 MG CAPSULE PO PRN (22:48)
[2020-10-05] MEDS: ALBUTEROL/IPRATROPIUM 3 ML NEB RESP TX SCH ×4 (02:55→19:28)
[2020-10-05] MEDS: SODIUM CHLORIDE 0.9% 1,000 ML IV SCH ×2 (04:36→14:13)
[2020-10-05 07:40] LABS: Calcium 9.4 MG/DL (8.5-10.1); Osmolality,Calculated 292.1 MOS/KG (273-304)
[2020-10-05] MEDS: GABAPENTIN 300 MG CAPSULE PO SCH ×2 (09:42→21:17)
[2020-10-05] MEDS: PIPERACILLIN/TAZOBACTAM 3,375 MG in SODIUM CHLORIDE 0.9% 100 ML IV SCH ×2 (09:42→21:17)
[2020-10-05] MEDS: PANTOPRAZOLE 40 MG TABLET PO SCH (09:42)
[2020-10-05] MEDS: DESITIN 4OZ/NYSTATIN 15 GRAM MIXTURE PASTE TOP SCH ×2 (09:42→21:17)
[2020-10-05 10:39] LABS: Basophils % 0.2 % (0.0-0.8); Eosinophils # 0.1 10*3/uL (0.0-0.87); Eosinophils % 0.4 % (0.00-10.9); Hematocrit 23.6 VOL% (35.7-47.0); Hemoglobin 7.4 GM/DL (12.0-16.0); Immature Granulocytes % 0.7 %; Immature Granulocytes Absolute 0.08 #; Lymphocytes # 0.6 10*3/uL (1.4-4.0); Lymphocytes % 4.7 % (21.3-54.2); Mean Corpuscular HGB Conc 31.4 GM/DL (32-36); Mean Corpuscular Volume 95.2 FL (87-102); Mean Platelet Volume 9.1 FL (9.6-12.0); Monocytes % 2.8 % (1.7-12.7); Neutrophils % 91.2 % (38.7-73.9); Platelet Count 502 T/CUMM (130-400); Red Blood Count 2.48 MC/CUMM (3.8-5.5); Red Cell Distribution Width 16.8 % (9.3-17.3); White Blood Count 12.1 T/CUMM (4-12)
[2020-10-05 10:59] LABS: Calcium 9.3 MG/DL (8.5-10.1); Osmolality,Calculated 294.1 MOS/KG (273-304)
[2020-10-05 11:23] LABS: Band Neutrophils 2 % (0-10); Lymphocytes 4 % (20-55); Platelet Estimate Increased; Segmented Neutrophils 91 % (50-85); Total Cells Counted 100
[2020-10-05 11:24] LABS: Anisocytosis 1+; Burr Cells Few; Hypochromasia Slight; Macrocytosis Slight; Poikilocytosis Slight
[2020-10-05] MEDS: ZALEPLON 5 MG CAPSULE PO PRN (21:17)
[2020-10-06] MEDS: ALBUTEROL/IPRATROPIUM 3 ML NEB RESP TX SCH ×4 (00:28→19:32)
[2020-10-06 06:54] LABS: Calcium 9.6 MG/DL (8.5-10.1); Osmolality,Calculated 292.8 MOS/KG (273-304)
[2020-10-06 09:27] LABS: Basophils % 0.2 % (0.0-0.8); Eosinophils # 0.1 10*3/uL (0.0-0.87); Eosinophils % 0.7 % (0.00-10.9); Hematocrit 24.7 VOL% (35.7-47.0); Hemoglobin 7.8 GM/DL (12.0-16.0); Immature Granulocytes % 0.5 %; Immature Granulocytes Absolute 0.07 #; Lymphocytes # 0.8 10*3/uL (1.4-4.0); Lymphocytes % 5.8 % (21.3-54.2); Mean Corpuscular HGB Conc 31.6 GM/DL (32-36); Mean Corpuscular Volume 94.6 FL (87-102); Mean Platelet Volume 9.2 FL (9.6-12.0); Monocytes % 4.4 % (1.7-12.7); Neutrophils % 88.4 % (38.7-73.9); Platelet Count 545 T/CUMM (130-400); Red Blood Count 2.61 MC/CUMM (3.8-5.5); Red Cell Distribution Width 17.6 % (9.3-17.3); White Blood Count 12.9 T/CUMM (4-12)
[2020-10-06] MEDS: PANTOPRAZOLE 40 MG TABLET PO SCH (09:37)
[2020-10-06] MEDS: GABAPENTIN 300 MG CAPSULE PO SCH ×2 (09:37→20:27)
[2020-10-06] MEDS: SODIUM CHLORIDE 0.9% 1,000 ML IV SCH ×3 (12:48→17:07)
[2020-10-06] MEDS: DESITIN 4OZ/NYSTATIN 15 GRAM MIXTURE PASTE TOP SCH ×2 (12:49→20:27)
[2020-10-06] MEDS: PIPERACILLIN/TAZOBACTAM 3,375 MG in SODIUM CHLORIDE 0.9% 100 ML IV SCH ×2 (16:48→17:00)
[2020-10-06] MEDS: ZALEPLON 5 MG CAPSULE PO PRN (20:27)
[2020-10-07] MEDS: ALBUTEROL/IPRATROPIUM 3 ML NEB RESP TX SCH ×4 (00:06→19:18)
[2020-10-07] MEDS: PIPERACILLIN/TAZOBACTAM 3,375 MG in SODIUM CHLORIDE 0.9% 100 ML IV SCH ×2 (04:56→18:38)
[2020-10-07 06:32] LABS: Basophils % 0.4 % (0.0-0.8); Eosinophils # 0.2 10*3/uL (0.0-0.87); Eosinophils % 1.8 % (0.00-10.9); Hematocrit 24.4 VOL% (35.7-47.0); Hemoglobin 7.6 GM/DL (12.0-16.0); Immature Granulocytes % 0.5 %; Immature Granulocytes Absolute 0.05 #; Lymphocytes # 0.9 10*3/uL (1.4-4.0); Lymphocytes % 9.3 % (21.3-54.2); Mean Corpuscular HGB Conc 31.1 GM/DL (32-36); Mean Corpuscular Volume 95.7 FL (87-102); Mean Platelet Volume 9.2 FL (9.6-12.0); Monocytes % 5.5 % (1.7-12.7); Neutrophils % 82.5 % (38.7-73.9); Platelet Count 510 T/CUMM (130-400); Red Blood Count 2.55 MC/CUMM (3.8-5.5); Red Cell Distribution Width 17.6 % (9.3-17.3); White Blood Count 9.4 T/CUMM (4-12)
[2020-10-07 06:49] LABS: Calcium 9.3 MG/DL (8.5-10.1)
[2020-10-07 06:50] LABS: Osmolality,Calculated 293.7 MOS/KG (273-304)
[2020-10-07] MEDS: SODIUM BICARB INJ 50 MEQ in DEXTROSE 5% 1,000 ML IV SCH ×2 (09:27→23:13)
[2020-10-07] MEDS: amLODIPine 5 MG TABLET PO SCH (09:27)
[2020-10-07] MEDS: PANTOPRAZOLE 40 MG TABLET PO SCH (09:29)
[2020-10-07] MEDS: GABAPENTIN 300 MG CAPSULE PO SCH ×2 (09:29→21:18)
[2020-10-07] MEDS ORDERED: hydrALAZINE 20 MG/1 ML VIAL IV PRN (10:09)
[2020-10-07] MEDS: DESITIN 4OZ/NYSTATIN 15 GRAM MIXTURE PASTE TOP SCH ×2 (15:20→21:18)
[2020-10-07] MEDS ORDERED: ACETAMINOPHEN 325 MG TABLET PO PRN (18:15)
[2020-10-07] MEDS: ASPIRIN EC 81 MG TABLET PO SCH (21:18)
[2020-10-08] MEDS: ALBUTEROL/IPRATROPIUM 3 ML NEB RESP TX SCH ×4 (01:22→18:46)
[2020-10-08] MEDS: PIPERACILLIN/TAZOBACTAM 3,375 MG in SODIUM CHLORIDE 0.9% 100 ML IV SCH ×2 (05:43→21:41)
[2020-10-08 06:14] LABS: Basophils % 0.2 % (0.0-0.8); Eosinophils # 0.4 10*3/uL (0.0-0.87); Eosinophils % 4.3 % (0.00-10.9); Hematocrit 22.2 VOL% (35.7-47.0); Hemoglobin 7.2 GM/DL (12.0-16.0); Immature Granulocytes % 0.5 %; Immature Granulocytes Absolute 0.04 #; Lymphocytes # 0.9 10*3/uL (1.4-4.0); Mean Corpuscular HGB Conc 32.4 GM/DL (32-36); Mean Corpuscular Volume 94.1 FL (87-102); Mean Platelet Volume 9.3 FL (9.6-12.0); Platelet Count 463 T/CUMM (130-400); Red Blood Count 2.36 MC/CUMM (3.8-5.5); Red Cell Distribution Width 17.9 % (9.3-17.3); White Blood Count 8.4 T/CUMM (4-12)
[2020-10-08 06:34] LABS: Calcium 8.8 MG/DL (8.5-10.1); Osmolality,Calculated 286.3 MOS/KG (273-304)
[2020-10-08] MEDS ORDERED: SODIUM CHLORIDE 0.9% 1,000 ML IV PRN (08:10)
[2020-10-08] MEDS: LACTOBACILLUS ACIDOPHILUS/BULGARICUS CAPLET PO SCH (11:48)
[2020-10-08] MEDS: ASPIRIN EC 81 MG TABLET PO SCH ×2 (11:48→21:41)
[2020-10-08] MEDS: CALCIUM (CARBONATE)/VITAMIN D 600 MG-400 UNIT TABLET PO SCH (11:48)
[2020-10-08] MEDS: PANTOPRAZOLE 40 MG TABLET PO SCH (11:48)
[2020-10-08] MEDS: amLODIPine 5 MG TABLET PO SCH (11:48)
[2020-10-08] MEDS: GABAPENTIN 300 MG CAPSULE PO SCH ×2 (11:48→21:41)
[2020-10-08] MEDS: DESITIN 4OZ/NYSTATIN 15 GRAM MIXTURE PASTE TOP SCH ×2 (11:49→21:42)
[2020-10-08] MEDS: SODIUM BICARB INJ 50 MEQ in DEXTROSE 5% 1,000 ML IV SCH (23:32)
[2020-10-09] MEDS: ALBUTEROL/IPRATROPIUM 3 ML NEB RESP TX SCH ×3 (01:43→13:09)
[2020-10-09] MEDS: SODIUM BICARB INJ 50 MEQ in DEXTROSE 5% 1,000 ML IV SCH (03:58)
[2020-10-09 08:44] LABS: Basophils % 0.4 % (0.0-0.8); Eosinophils # 0.3 10*3/uL (0.0-0.87); Eosinophils % 4.5 % (0.00-10.9); Hematocrit 30.4 VOL% (35.7-47.0); Immature Granulocytes % 0.5 %; Immature Granulocytes Absolute 0.04 #; Lymphocytes % 13.4 % (21.3-54.2); Mean Corpuscular HGB Conc 31.3 GM/DL (32-36); Mean Platelet Volume 8.8 FL (9.6-12.0); Monocytes % 5.7 % (1.7-12.7); Neutrophils % 75.5 % (38.7-73.9); Platelet Count 436 T/CUMM (130-400); White Blood Count 7.4 T/CUMM (4-12)
[2020-10-09] MEDS: GABAPENTIN 300 MG CAPSULE PO SCH (08:46)
[2020-10-09] MEDS: PANTOPRAZOLE 40 MG TABLET PO SCH (08:46)
[2020-10-09 08:47] LABS: Hemoglobin 9.5 GM/DL (12.0-16.0)
[2020-10-09] MEDS: ASPIRIN EC 81 MG TABLET PO SCH (08:47)
[2020-10-09] MEDS: LACTOBACILLUS ACIDOPHILUS/BULGARICUS CAPLET PO SCH (08:47)
[2020-10-09] MEDS: CALCIUM (CARBONATE)/VITAMIN D 600 MG-400 UNIT TABLET PO SCH (08:47)
[2020-10-09] MEDS: DESITIN 4OZ/NYSTATIN 15 GRAM MIXTURE PASTE TOP SCH (08:48)
[2020-10-09] MEDS: amLODIPine 5 MG TABLET PO SCH (08:48)
[2020-10-09 11:34] VITALS: BP 173/73
== END 2020-10-09 14:51 | disposition swing bed (61) | DRG 871 ==
LOC: EDBD → EDUNIT# → N.ED 08:01 → SUATTDRO 11:49 → N.EDINP 11:49 → N.3E 15:50
PROVIDERS: ADMIT Emergency Medicine; ATTEND Internal Medicine